=== PATIENT | male | born 1970 | race Caucasian/White ===

== ENCOUNTER 2022-06-16 16:58 | Inpatient (IN) | payer MEDICAID ==
[~2022-06-16] VITALS: Ht 175.3 cm; Wt 100.0 kg
[2022-06-16] MEDS ORDERED: loperamide 2mg capsule PO PRN (23:40)
[2022-06-16] MEDS ORDERED: mag hydrox/Alum hydrox/simeth 30ml oral suspension PO PRN (23:40)
[2022-06-16] MEDS ORDERED: acetaminophen 325mg tablet PO PRN ×2 (23:40)
[2022-06-16] MEDS ORDERED: magnesium hydroxide 30ml (MOM) UD suspension PO PRN (23:40)
[2022-06-16] MEDS ORDERED: NO HOME MEDS (23:49)
[2022-06-16 23:55] VITALS: BP 102/52
[2022-06-17] MEDS ORDERED: LORazepam 1 MG tablet PO ONE (00:15)
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
[2022-06-17 07:31] VITALS: BP 93/55
[2022-06-17 10:13] LABS: HEMOGLOBIN A1C 5.3 % (4.5-6.2)
[2022-06-17 10:22] LABS: CHOL/HDL RATIO 2.5 (0.00-4.99); CHOLESTEROL 125 MG/DL (0-200); HDL CHOLESTEROL 51 MG/DL (35-60); LDL CHOLESTEROL 60 MG/DL (50-100); TRIGLYCERIDES 131 MG/DL (20-135)
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
--- NOTE | 2022-06-17 15:45 | NUR ---
RN PROGRESS NOTE Problem: Pt is a 52 y/o single Caucsian male who was placed on a 5150 for grave disability at [facility] in [place]. He presented to the ED with depression, confusion, and SI. He reported he had consumed alcohol and used meth. He also reported he had not been taking his medicaitons for quite some time. He was disorganized and unable to answer questions congruently. He was unable to formulate a viable plan, for food, clothing or usp. Intervention: Provided morning 1:1 assessment; consulted with JAZLYN Love regarding pt discharge medications. Made phone calls to pharmacy ([facility] ) where his discharge medications were called into from [facility] in [place]. Encouraged participation in group. Maintained q15 min safety checks. Response: Pt reports being on a lot of medications. He states the medications are at a pharmacy in [place]. Pt asking about Suboxone. No Suboxone at the pharmacy and could not find any orders in his discharge orders in his chart. Pt has labs that were done at [place] he is asking about the results. Plan: Pt has no plans for discharge. He is in need of medication stabilization.
[2022-06-17] MEDS ORDERED: BACL10TA PO (16:01)
[2022-06-17] MEDS ORDERED: GABA300C PO (16:01)
[2022-06-17] MEDS ORDERED: CARB300C9 PO (16:01)
[2022-06-17] MEDS ORDERED: FLUO20CA39 PO (16:01)
[2022-06-17] MEDS ORDERED: ATOR80TA PO (16:01)
[2022-06-17] MEDS ORDERED: METO-395 PO (16:58)
[2022-06-17] MEDS ORDERED: HYDR12.55 PO (16:58)
[2022-06-17] MEDS ORDERED: METF-436 PO (16:58)
[2022-06-17] MEDS ORDERED: LISI20TA28 PO (16:58)
[2022-06-17] MEDS ORDERED: ZIPR20CA2 PO (16:58)
[2022-06-17] MEDS ORDERED: OXCA300T16 PO (16:58)
[2022-06-17 19:10] VITALS: BP 110/65
[2022-06-17] MEDS: prazosin 1mg capsule PO SCH (20:26)
[2022-06-17] MEDS: ziprasidone 20mg capsule PO SCH (20:26)
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
[2022-06-18 07:00] VITALS: BP 134/77
[2022-06-18] MEDS: ziprasidone 20mg capsule PO SCH ×2 (08:03→20:05)
--- NOTE | 2022-06-18 15:14 | NUR ---
Theapeutic group Mr. Lan attended group today. Todays group was about healthy communication, based on Gottman method. We learned about what shuts communication down (defensiveness, contempt, stonewalling, criticism) and then discussed what positive communication styles: "I" statements, taking time outs, listening. Pt. was engaged in the topic as evidenced by conversation with peers and this filing writer, review of handouts. Thought content contained sadness and concern about a son who client said has a brain injury, and he feels he let him down/he doesn't know where he is. Client stated he does not like toxic masculinity (his words), and when men try to be toughest--he therefore feels he communicates better with women. Client was dressed in scrubs, hygiene WNL, client was alert and oriented X 4. His mood was sad and concerned, along with stating he wants to continue to be a better man and father. Demeanor was calm, compliant, and pleasant to work with.
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
[2022-06-18 19:45] VITALS: BP 121/85
[2022-06-18] MEDS: prazosin 1mg capsule PO SCH (20:05)
--- NOTE | 2022-06-19 00:35 | NUR ---
RN PROGRESS NOTE Problem: Pt is a 52 y/o single male who was placed on a 5150 for grave disability at [facility] in [place]. He presented to the ED with depression, confusion, and SI. He reported he had consumed alcohol and used meth. He also reported he had not been taking his medications for quite some time. He was disorganized and unable to answer questions congruently. He was unable to formulate a viable plan, for food, clothing or mcfp. Intervention: Provided morning 1:1 assessment; consulted with JAZLYN Love regarding pt discharge medications. Made phone calls to pharmacy ([facility] ) where his discharge medications were called into from [facility] in [place]. Encouraged participation in group. Maintained q15 min safety checks. Response: Pt was walking in the hallway independent of his walker at change of shift. Pt is isolating to his room otherwise and was not noted to be socializing with other patients. Pt is depressed, hopeless, endorses s/i but doesnt give a plan, "I might as well be , I don't feel like I belong anywhere." Explained to patient that his Geodon was increasing this evening. Pt was aware of the increase and stated "I think I was supposed to get a new med tonight but I don't know what that is." Explained nothing new is ordered for tonight, just the increase to Geodon. Plan: Pt has no plans for discharge. He is in need of medication stabilization.
[2022-06-19 07:25] VITALS: BP 114/76
[2022-06-19] MEDS: ziprasidone 20mg capsule PO SCH (08:22)
[2022-06-19] MEDS ORDERED: LISI20TA28 PO (14:09)
[2022-06-19] MEDS ORDERED: METF-436 PO (14:09)
[2022-06-19] MEDS ORDERED: ZIPR20CA12 PO (14:09)
[2022-06-19] MEDS ORDERED: METO-395 PO (14:09)
[2022-06-19] MEDS ORDERED: ATOR80TA PO (14:09)
[2022-06-19] MEDS ORDERED: PRAZ1CAP5 PO (14:09)
--- NOTE | 2022-06-19 15:26 | NUR ---
DISCHARGE PLAN Quentin denied any current suicidal ideation, intent, or plan. He reported he wants to return to [place] where he knows what resources are available to him. Provided him with information on when [employer] and [employer] leave [place]. He wants to discharge to go the bank to get money to buy either [employer] or [employer] ticket. Associate Professor Of Art History provided him with local bus passes to go to the bank and get to the train station. LEXI Asher
--- NOTE | 2022-06-19 16:15 | NUR ---
DISCHARGE NOTE: Pt. discharged to [facility]. Pt. given bus tickets. RN went over all discharge paperwork with pt. and pt. verbalized understanding and signed all paperwork including firearms restriction, f/u plan, and discharge medications, and emergency phone numbers including 911. Pt. denies SI/HI, A/V hallucinations. Pt. is A&O x4 and in no apparent distress.
== END 2022-06-19 16:15 | disposition home or self-care (01) | DRG 751 ==
LOC: EDBD 23:36 → ADULT MH 23:36
PROVIDERS: ADMIT Psychiatry & Neurology Psychiatry; ATTEND Psychiatry & Neurology Psychiatry
DX: F29 Unspecified psychosis not due to a substance or known physiological condition (principal); R45.851 Suicidal ideations; E11.40 Type 2 diabetes mellitus with diabetic neuropathy, unspecified; F43.12 Post-traumatic stress disorder, chronic; F43.21 Adjustment disorder with depressed mood; F12.90 Cannabis use, unspecified, uncomplicated; J45.909 Unspecified asthma, uncomplicated; I10 Essential (primary) hypertension; K21.9 Gastro-esophageal reflux disease without esophagitis; I25.10 Atherosclerotic heart disease of native coronary artery without angina pectoris; I25.2 Old myocardial infarction; Z59.00 Homelessness unspecified; Z83.3 Family history of diabetes mellitus; Z87.891 Personal history of nicotine dependence; Z91.410 Personal history of adult physical and sexual abuse; Z56.0 Unemployment, unspecified; Z79.899 Other long term (current) drug therapy
CPT/HCPCS: 36415; 80061; 83036; 87081

== ENCOUNTER 2022-06-21 18:30 | Inpatient (IN) | payer MEDICAID ==
[~2022-06-21] VITALS: Ht 182.9 cm; Wt 90.0 kg
[~2022-06-21 18:30] MED LIST: ATOR80TA PO; CARB300C9 PO; GABA300C PO; HYDR12.55 PO; LISI20TA28 PO; METF-436 PO; METO-395 PO; OXCA300T16 PO; PRAZ1CAP5 PO; ZIPR20CA12 PO
[2022-06-21 19:32] LABS: BASOPHILS % (AUTO) 0.2 % (0-1); EOSINOPHILS # (AUTO) 0.1 X10'3 (0-0.9); EOSINOPHILS % (AUTO) 0.9 % (0-6); HEMATOCRIT 42.6 % (42.0-52.0); HEMOGLOBIN 14.5 g/dl (14.0-17.9); LYMPHOCYTES % (AUTO) 16.6 % (21-51); MEAN CORPUSCULAR HGB CONC 34.1 g/dL (33.0-36.5); MEAN CORPUSCULAR VOLUME 84.9 FL (78-98); MEAN PLATELET VOLUME 7.2 FL (7.4-10.4); MONOCYTES % (AUTO) 8.5 % (2-12); NEUTROPHILS # (AUTO) 8.7 X10'3 (1.8-7.7); NEUTROPHILS % (AUTO) 73.8 % (42-75); PLATELET COUNT 413 X10'3 (140-440); RED BLOOD COUNT 5.02 X10'6 (4.70-6.10); RED CELL DISTRIBUTION WIDTH 14.5 % (11.5-14.5); WHITE BLOOD COUNT 11.8 X10'3 (4.5-11.0)
[2022-06-21 19:48] LABS: ALANINE AMINOTRANSFERASE 40 U/L (12-78); ALBUMIN 4.5 G/DL (3.4-5.0); ALBUMIN/GLOBULIN RATIO 1.2 (1.1-1.5); ALKALINE PHOSPHATASE 174 IU/L (46-116); ANION GAP 10 (8-16); ASPARTATE AMINO TRANSFERASE 37 U/L (10-37); BILIRUBIN,TOTAL 0.7 MG/DL (0.1-1.0); BLOOD UREA NITROGEN 13 MG/DL (7-18); BUN/CREATININE RATIO 14.8 (5.4-32.0); CALCIUM 9.6 MG/DL (8.5-10.1); CHLORIDE 101 MMOL/L (99-107); CREATININE 0.88 MG/DL (0.60-1.10); GLUCOSE 113 MG/DL (70-104); POTASSIUM 3.7 MMOL/L (3.5-5.1); SODIUM 138 MMOL/L (135-145); TOTAL CARBON DIOXIDE 27.2 MMOL/L (24-32); TOTAL PROTEIN 8.4 G/DL (6.4-8.2); eGFR 87 ML/MIN
[2022-06-21 19:49] LABS: CLARITY,URINE CLEAR (Clear); COLOR,URINE YELLOW (Yellow); GLUCOSE, URINE NEGATIVE (Neg); KETONES,URINE NEGATIVE (Neg); LEUKOCYTE ESTERASE ,URINE NEGATIVE (Neg); NITRITES, URINE NEGATIVE (Neg); OCCULT BLOOD,URINE NEGATIVE (Neg); PROTEIN,URINE NEGATIVE (Neg); UROBILINOGEN,URINE 0.2 E.U/dL (0.2-1.0)
[2022-06-21 19:52] LABS: UA COLLECTION TYPE NON-SPECIFIED
[2022-06-21 20:02] LABS: URINE AMPHETAMINE SCREEN POSITIVE (Neg); URINE BARBITUATE SCREEN NEGATIVE (Neg); URINE BENZODIAZEPINES SCREEN NEGATIVE (Neg); URINE CANNABINOID SCREEN POSITIVE (Neg); URINE COCAINE SCREEN NEGATIVE (Neg); URINE METHADONE SCREEN NEGATIVE (Neg); URINE OPIATE SCREEN NEGATIVE (Neg); URINE PHENCYCLIDINE SCREEN NEGATIVE (Neg)
[2022-06-21] MEDS ORDERED: temazepam 15mg capsule PO PRN (21:00)
[2022-06-21] MEDS ORDERED: ziprasidone IM 20mg inj **IM only IM ONE (21:15)
[2022-06-21] MEDS ORDERED: LORazepam 2 mg/ml vial IM ONE (21:15)
[2022-06-21] MEDS ORDERED: diphenhydrAMINE 50 mg/ml inj IM ONE (21:15)
[2022-06-21] MEDS ORDERED: magnesium 4gm in 100ml NS 100 ML IV PRN (21:30)
[2022-06-21] MEDS ORDERED: potassium Cl 20 mEq SR tablet PO PRN ×2 (21:30)
[2022-06-21] MEDS ORDERED: ondansetron/PF 4mg/2ml inj IV PRN (21:30)
[2022-06-21] MEDS ORDERED: potassium Cl 40MEQ/1/2NS 520ml 520 ML IV PRN (21:30)
[2022-06-21] MEDS ORDERED: normal saline 1000ml 1,000 ML IV SCH (21:30)
[2022-06-21] MEDS ORDERED: acetaminophen 325mg tablet PO PRN ×2 (21:30)
[2022-06-21] MEDS ORDERED: magnesium Cl slow-release 64mg tablet PO PRN (21:30)
[2022-06-22] VITALS: BP 121/84
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
--- NOTE | 2022-06-22 01:00 | NUR ---
pt pulled off monitor and cuff, will not allow even though pt is in 4 point restraints
[2022-06-22] MEDS ORDERED: ziprasidone IM 20mg inj **IM only IM ONE (01:15)
[2022-06-22] MEDS ORDERED: diphenhydrAMINE 50 mg/ml inj IM ONE (01:15)
[2022-06-22] MEDS ORDERED: NO HOME MEDS (02:16)
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
--- NOTE | 2022-06-22 03:17 | NUR ---
0300 pt asking to urinate and go home, tried to asst. with urinal pt, refusing and cursing staff, will not given name even thought pt was advised if he was coopertive that we may be able to go home, pt still uncoopertive
--- NOTE | 2022-06-22 03:31 | NUR ---
PT STATES HIS NAME IS CARI HANSEN [birth year].
--- NOTE | 2022-06-22 03:52 | NUR ---
Dr. Andrews at and aware of pt leaving AMA. She and Dr Johnson spoke. Pt is changing into clothing now and not causing any problems. AOx4. Security at the BS assisting, along with tech. He has a steady gait.
[2022-06-22] MEDS ORDERED: heparin, porcine 5000 units/ml vial SQ SCH (08:00)
== END 2022-06-22 14:15 | disposition left against medical advice (07) | DRG 812 ==
LOC: EDBD → ER 18:31 → MERGE 21:31 → ED HOLD 21:31
PROVIDERS: ADMIT Internal Medicine; ATTEND Family Medicine
DX: T43.651A Poisoning by methamphetamines accidental (unintentional), initial encounter (principal); G92.8 Other toxic encephalopathy; Y92.89 Other specified places as the place of occurrence of the external cause; Z78.1 Physical restraint status
CPT/HCPCS: 36415; 70450; 80053; 80305; 81003; 83605; 85025; 87040; 99285; G0378; J1200; J2060; J3486; J7030

== ENCOUNTER 2022-06-24 15:30 | Emergency (ER) | payer MEDICAID ==
[~2022-06-24] VITALS: Ht 172.7 cm; Wt 93.0 kg
[~2022-06-24 15:30] MED LIST changes: +NO HOME MEDS
[2022-06-24 16:56] LABS: BASOPHILS % (AUTO) 0.2 % (0-1); EOSINOPHILS # (AUTO) 0.2 X10'3 (0-0.9); EOSINOPHILS % (AUTO) 1.6 % (0-6); HEMATOCRIT 33.2 % (42.0-52.0); HEMOGLOBIN 11.3 g/dl (14.0-17.9); LYMPHOCYTES # (AUTO) 2.1 X10'3 (1.1-4.8); LYMPHOCYTES % (AUTO) 19.6 % (21-51); MEAN CORPUSCULAR HEMOGLOBIN 29.2 PG (27.0-31.0); MEAN CORPUSCULAR HGB CONC 34.1 g/dL (33.0-36.5); MEAN CORPUSCULAR VOLUME 85.7 FL (78-98); MEAN PLATELET VOLUME 7.5 FL (7.4-10.4); MONOCYTES # (AUTO) 0.9 X10'3 (0-0.9); MONOCYTES % (AUTO) 8.7 % (2-12); NEUTROPHILS # (AUTO) 7.5 X10'3 (1.8-7.7); NEUTROPHILS % (AUTO) 69.9 % (42-75); PLATELET COUNT 349 X10'3 (140-440); RED BLOOD COUNT 3.88 X10'6 (4.70-6.10); RED CELL DISTRIBUTION WIDTH 14.7 % (11.5-14.5); WHITE BLOOD COUNT 10.7 X10'3 (4.5-11.0)
--- NOTE | 2022-06-24 17:01 | NUR ---
Pt declined to leave urine sample at this time.
[2022-06-24 17:08] LABS: ALANINE AMINOTRANSFERASE 29 U/L (12-78); ALBUMIN 3.2 G/DL (3.4-5.0); ALKALINE PHOSPHATASE 135 IU/L (46-116); ANION GAP 9 (8-16); ASPARTATE AMINO TRANSFERASE 20 U/L (10-37); BILIRUBIN,TOTAL 0.2 MG/DL (0.1-1.0); BLOOD UREA NITROGEN 13 MG/DL (7-18); CALCIUM 8.5 MG/DL (8.5-10.1); CHLORIDE 106 MMOL/L (99-107); CREATININE 0.62 MG/DL (0.60-1.10); GLUCOSE 130 MG/DL (70-104); POTASSIUM 3.5 MMOL/L (3.5-5.1); SODIUM 138 MMOL/L (135-145); TOTAL CARBON DIOXIDE 22.6 MMOL/L (24-32); TOTAL PROTEIN 6.4 G/DL (6.4-8.2); eGFR > 90 ML/MIN
[2022-06-24 17:18] LABS: ETHANOL < 0.010 GM/DL (0.0-0.010)
[2022-06-24 18:29] LABS: CLARITY,URINE CLEAR (Clear); COLOR,URINE YELLOW (Yellow); GLUCOSE, URINE NEGATIVE (Neg); KETONES,URINE NEGATIVE (Neg); LEUKOCYTE ESTERASE ,URINE NEGATIVE (Neg); NITRITES, URINE NEGATIVE (Neg); OCCULT BLOOD,URINE NEGATIVE (Neg); PROTEIN,URINE NEGATIVE (Neg); UROBILINOGEN,URINE 0.2 E.U/dL (0.2-1.0)
--- NOTE | 2022-06-24 18:35 | NUR ---
Patient endorsed to Karlos ZAVALA
[2022-06-24 18:41] LABS: UA COLLECTION TYPE VOIDED
[2022-06-24 18:42] LABS: URINE AMPHETAMINE SCREEN POSITIVE (Neg); URINE BARBITUATE SCREEN NEGATIVE (Neg); URINE BENZODIAZEPINES SCREEN NEGATIVE (Neg); URINE CANNABINOID SCREEN POSITIVE (Neg); URINE COCAINE SCREEN NEGATIVE (Neg); URINE METHADONE SCREEN NEGATIVE (Neg); URINE OPIATE SCREEN NEGATIVE (Neg); URINE PHENCYCLIDINE SCREEN NEGATIVE (Neg)
[2022-06-24] MEDS ORDERED: LORazepam 1 MG tablet PO ONE (19:15)
[2022-06-24] MEDS ORDERED: acetaminophen 325mg tablet PO ONE (19:15)
--- NOTE | 2022-06-24 19:15 | NUR ---
PACKET SENT TO [facility]
--- NOTE | 2022-06-24 19:21 | NUR ---
po meds x2 given pbb locked up in OF storage by javy recinos
--- NOTE | 2022-06-24 19:25 | NUR ---
report given to basilio recinos
--- NOTE | 2022-06-24 20:20 | NUR ---
Attempted one to one with the patient but he was slurring his words and appears to be coming off methamphetamines.
[2022-06-24] MEDS ORDERED: GABA300C PO (20:34)
[2022-06-24] MEDS ORDERED: LOP12.5T PO (20:34)
[2022-06-24] MEDS ORDERED: CARB300C9 PO (20:34)
[2022-06-24] MEDS ORDERED: OXCA300T16 PO (20:34)
[2022-06-24] MEDS ORDERED: ATOR80TA13 PO (20:34)
[2022-06-24] MEDS ORDERED: HYDR12.55 PO (20:34)
[2022-06-24] MEDS ORDERED: LISI20TA28 PO (20:34)
[2022-06-24] MEDS ORDERED: METF-1203 (20:34)
--- NOTE | 2022-06-24 22:29 | NUR ---
pt moved to main er room 15
--- NOTE | 2022-06-25 02:21 | NUR ---
general assessment reviewed
[2022-06-25] MEDS ORDERED: gabapentin 300mg capsule PO SCH (08:00)
[2022-06-25] MEDS ORDERED: atorvastatin 20mg tablet PO SCH (08:00)
[2022-06-25] MEDS ORDERED: carbamazepine 100mg ER CAPSULE (12-hour) PO SCH (08:00)
[2022-06-25] MEDS ORDERED: HYDROchlorothiazide 12.5mg capsule PO SCH (08:00)
[2022-06-25] MEDS ORDERED: metFORMIN 500mg tablet PO SCH (08:00)
[2022-06-25] MEDS ORDERED: metoprolol tartrate 12.5mg (1/2 tablet) PO SCH (08:00)
[2022-06-25] MEDS ORDERED: oxcarbazepine 150mg tablet PO SCH (08:00)
[2022-06-25] MEDS ORDERED: lisinopril 20mg tablet PO SCH (08:00)
[2022-06-25 08:18] VITALS: BP 144/78
--- NOTE | 2022-06-25 09:17 | NUR ---
Met with patient in regards to substance use and to see if patient was interested in resources for treatment options. Patient stated that he wants help but he is unable to get it. Patient is a registered 290 and he is unable to do inpatient rehab. I talked to patient about getting help outpatient and he isn't interested.
== END 2022-06-25 11:36 | disposition home or self-care (01) ==
LOC: ER 15:30
DX: R45.851 Suicidal ideations (principal); Z20.822 Contact with and (suspected) exposure to COVID-19; F15.90 Other stimulant use, unspecified, uncomplicated; F19.10 Other psychoactive substance abuse, uncomplicated; F41.9 Anxiety disorder, unspecified; F32.A Depression, unspecified; F20.9 Schizophrenia, unspecified; F17.200 Nicotine dependence, unspecified, uncomplicated; F12.90 Cannabis use, unspecified, uncomplicated; Z72.89 Other problems related to lifestyle; Z60.2 Problems related to living alone; Z59.00 Homelessness unspecified; Z56.0 Unemployment, unspecified; Z79.899 Other long term (current) drug therapy
CPT/HCPCS: 36415; 80053; 80305; 80320; 81003; 82948; 84443; 85025; 87811; 99285